=== PATIENT | male | born 1970 | race Caucasian/White ===

== ENCOUNTER 2021-12-19 17:38 | Emergency (ER) | payer OTHER, SELFPAY ==
--- NOTE | ~2021-12-19 | US_ITS ---
US scrotum doppler DATE: 12/19/2021 20:10 INDICATION: Right scrotal pain, swelling, firmness. Fever. TECHNIQUE: Real-time and color flow imaging and Doppler analysis of the scrotal contents COMPARISON: None FINDINGS: The right testicle measures 5.5 x 4.6 x 3.8 cm. There is increased vascularity on [place] w and Doppler at the right testicle. There is enlargement and hypervascularity of the epididymis. Rig ht orchitis and epididymitis are suggested. There is a complicated right hydrocele. Left testicle measures 4.6 x 3.8 x 2.9 cm. 4 mm cyst of the head of the left epididymis.. There is no mass lesion or torsion of either testicle. IMPRESSION: Enlargement and hypervascularity of the right testicle and epididymis consistent with rig ht orchitis and epididymitis No testicular mass lesion or torsion. Reviewed, dictated and finalized at [facility]. Reviewed, dictated and finalized at [facility] IMPRESSION: Enlargement and hypervascularity of the right testicle and epididym is consistent with right orchitis and epididymitis No testicular mass lesion or torsion.
[2021-12-19 17:44] VITALS: BP 133/73; PULSE 108; RESP 22; TEMP 37.5; O2SAT 100
--- NOTE | 2021-12-19 18:44 | ED.GENADULT ---
HPI - General Adult General Chief complaint: Urogenital-Male Stated complaint: R TESTICULAR SWELLING Time Seen by Provider: 12/19/21 18:35 History of Present Illness HPI narrative: 51-year-old male presents emergency room secondary to some pain to the right flank going all the way through to the anterior portion of his abdomen down to his testicle. States he has significant swelling and pain to the right testicle. Intermittent he felt like he has some chills or fevers. Denies any dysuria. Denies any trauma to his testicle. His exquisitely tender to palpation according to him. He is also got some swelling in the right inguinal region. No history of kidney stones. Related Data Allergies Allergy/AdvReac Type Severity Reaction Status Date / Time No Known Allergies Allergy Verified 12/19/21 17:47 Review of Systems Review of Systems: CONSTITUTIONAL: Denies fever, chills, or sweats. EYES: Denies visual changes, redness, or discharge. ENT: Denies rhinorrhea, congestion, sore throat, or otalgia. CARDIOVASCULAR: Denies chest pain, palpitations, or edema. RESPIRATORY: Denies cough or dyspnea. GASTROINTESTINAL: Denies abdominal pain, nausea, vomiting, or diarrhea. GENITOURINARY: Denies dysuria or hematuria. SKIN: Denies rash or itching. MUSCULOSKELETAL: Denies back pain, joint pain, or myalgia. NEUROLOGIC: Denies headache, numbness, or weakness. PSYCHIATRIC: Denies anxiety or depression. Exam Narrative: APPEARANCE: Mild to moderate distress secondary to pain Head normocephalic and atraumatic. EYES: PERRLA/EOMI, conjunctivae very clear. NOSE: Normal with no drainage EARS:TMS clear Jozef Gamboa, with good light reflex. THROAT: Pharynx clear, no exudate. NECK: Supple. No adenopathy, no masses. RESPIRATORY: Airway patent, respirations nonlabored. Clear to auscultation bilaterally, no rales, rhonchi, wheezing. CARDIOVASCULAR: Regular rate and rhythm without murmurs, rubs, or gallops. ABDOMINAL: Soft, nondistended, no hepatosplenomegaly. Mild tenderness in the right suprapubic region. Musculoskeletal: Moves all extremities. Strength/ROM intact, No edema, No calf tenderness. NEURO: Alert. Cranial nerves II through XII intact. Normal gait. Good coordination. Nonfocal examination. SKIN:: Warm, dry. Normal Color PSYCHIATRIC: Normal affect/mood, normal interaction GENITAL: Right testicle is markedly swollen and very firm and exquisitely tender to palpation. Noted to have tender nodes in the right inguinal region. No discharge from the penis. Course Vital Signs Vital signs: Vital Signs Temperature 99.5 F 12/19/21 17:44 Pulse Rate 108 H 12/19/21 17:44 Respiratory Rate 22 H 12/19/21 17:44 Blood Pressure 133/73 12/19/21 17:44 Pulse Oximetry 100 12/19/21 17:44 Temperature 99.5 F 12/19/21 17:44 Pulse Rate 108 H 12/19/21 17:44 Respiratory Rate 22 H 12/19/21 17:44 Blood Pressure 133/73 12/19/21 17:44 Pulse Oximetry 100 12/19/21 17:44 Medical Decision Making MDM Narrative Medical decision making narrative: Work-up and evaluation as noted is consistent with epididymitis/orchitis. This was explained to the patient. Given IV antibiotics in the emergency department. Also given IV pain medication. Will discharge home care with prescription for naproxen as well as Levaquin 500 mg twice daily for 10 days. Vital Signs Vital Signs: Vital Signs Temperature 99.5 F 12/19/21 17:44 Pulse Rate 108 H 12/19/21 17:44 Respiratory Rate 22 H 12/19/21 17:44 Blood Pressure 133/73 12/19/21 17:44 Pulse Oximetry 100 12/19/21 17:44 Temperature 99.5 F 12/19/21 17:44 Pulse Rate 108 H 12/19/21 17:44 Respiratory Rate 22 H 12/19/21 17:44 Blood Pressure 133/73 12/19/21 17:44 Pulse Oximetry 100 12/19/21 17:44 Lab Data Result diagrams: 12/19/21 19:23 12/19/21 19:23 Labs: Lab Results 12/19/21 12/19/21 Range/Units 19:23 19:23 WBC 13.6 H (4.5-10.0) K/mm
[2021-12-19] MEDS: SODIUM CHLORIDE 0.9% IV 1,000 ML 500 ML IV CONT (19:19)
[2021-12-19] MEDS: MORPHINE SULFATE (*CRX) 4 MG/ML INJ IV PUSH (19:21)
[2021-12-19 19:32] LABS: Basophils Absolute Auto 0.1 K/mm3 (0.0-0.1); Basophils Percent Auto 0.4 % (0.2-1.2); Hematocrit 44.5 % (42.0-52.0); Hemoglobin 15.2 g/dL (14.0-18.0); Immature Granulocyte Absolute 0.07 K/mm3 (0.00-0.031); Immature Granulocyte Percent A 0.5 % (0-0.5); Lymphocytes Absolute Auto 0.66 K/mm3 (0.9-3.2); Lymphocytes Percent Auto 4.9 % (18.3-44.2); Mean Corpuscular HGB Conc 34.2 g/dl (32-36); Mean Corpuscular Hemoglobin 30.2 pg (26-34); Mean Corpuscular Volume 88.3 fl (80-100); Mean Platelet Volume 9.8 fl (7.4-10.4); Monocytes Absolute Auto 1.1 K/mm3 (0.1-0.6); Monocytes Percent Auto 7.7 % (2.6-8.5); Neutrophils Absolute Auto 11.7 K/mm3 (1.3-6.7); Neutrophils Percent Auto 86.5 % (45.5-73.1); Platelet Count Result 249 k/mm3 (150-375); Red Blood Count 5.04 M/mm3 (4.6-6.20); Red Cell Distribution Width 11.9 % (11.5-14.5); White Blood Count 13.6 K/mm3 (4.5-10.0)
[2021-12-19 19:43] LABS: Alanine Aminotransferase 101 U/L (6-50); Albumin Level 4.1 g/dL (3.5-5.1); Alkaline Phosphatase 106 U/L (38-126); Anion Gap 9 mmol/L (8-16); Aspartate Amino Transferase 77 U/L (17-59); Bilirubin,Total 1.2 mg/dL (0.2-1.3); Blood Urea Nitrogen 15 mg/dL (9-20); Carbon Dioxide 25 mmol/L (22-30); Chloride 102 mmol/L (98-107); Estimated CRCL calculation 66 ml/min; Estimated Glomerular Filt Rate > 60; Glucose 121 mg/dL (65-110); Potassium 3.9 mmol/L (3.4-5.0); Sodium 136 mmol/L (137-145)
--- NOTE | 2021-12-19 20:11 | PC.NURSE ---
pt reports unable to provide urine sample at this time
[2021-12-19] MEDS: cefTRIAXone 2 GM in SODIUM CHLORIDE 0.9% IV 100 ML 200 ML IVPB (20:59)
[2021-12-19] MEDS: KETOROLAC 30 MG/ML VIAL (*BKC) IV PUSH (21:00)
[2021-12-19 22:04] VITALS: BP 128/80; PULSE 93; RESP 16; O2SAT 97
== END 2021-12-19 21:36 | disposition home or self-care (01) ==
PROVIDERS: Emergency Provider Emergency Medicine
DX: N45.2 Orchitis (principal)
CPT/HCPCS: 36415; 76870; 80053; 85025; 93976; 96361; 96365; 96375; 99284; J0696; J1885; J2270; J7030